=== PATIENT | female | born 1995 | race Caucasian/White ===

== ENCOUNTER 2020-01-23 10:30 | Emergency (ER) | payer SELFPAY ==
[2020-01-23 11:05] VITALS: BP 132/88; PULSE 97; RESP 18; TEMP 36.5; O2SAT 95; BMI 40.3
--- NOTE | 2020-01-23 11:10 | ED.EXTPRO ---
HPI - Extremity Problem General Chief complaint: Extremity Injury, Upper Stated complaint: R HAND PAIN Time Seen by Provider: 01/23/20 11:10 Source: patient Mode of arrival: ambulatory Limitations: no limitations History of Present Illness HPI Narrative: 24 y/o female presenting with intermittent tight wrist, hand and finger tingling for the last 3-4 days. No known injury. 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 She describes it as electrical shock type discomfort. She is right hand dominant. She denies being woken up at night from the pain and is able to do all of her ADL's. No hand weakness. Related Data Previous Rx's Medication Instructions Recorded prednisone 20 mg PO DAILY #10 tab 01/23/20 Allergies Allergy/AdvReac Type Severity Reaction Status Date / Time No Known Allergies Allergy Verified 01/23/20 11:07 [No Known Allergies*] Review of Systems Review of Systems: Constitutional: No Fever, No Chills Cardiovascular: No Chest Pain, No SOB, Respiratory: No Cough, No Sputum Gastrointestinal: No Nausea, No Vomiting, No Diarrhea, No abdominal Pain Musculoskeletal: + joint pain, No Myalgias Skin: No Skin Lesions, No rash Neuro: No Weakness, + Numbness/tingling Psych: + Anxiety/Panic, No Depression Heme/Lymph: No Bruising, No Lymphadenopathy PMFSH Past Medical History Attestation statement: The following information was validated with the patient. Medical History No known health problems Social History Social History Advance Directives: No Advance Directives Information Provided: No Physical Exam Vital Signs: Vital Signs: Last Vital Signs Temp 97.7 F 01/23/20 11:05 Pulse 97 01/23/20 11:05 Resp 18 01/23/20 11:05 BP 132/88 01/23/20 11:05 Pulse Ox 95 01/23/20 11:05 Body Mass Index 40.3 Appearance: Alert. Oriented X3. No acute distress. HEENT: normal inspection CVS: Normal heart rate and rhythm. Pulses normal. Respiratory: No respiratory distress. Skin: Skin warm and dry. Normal skin color. Normal skin turgor. No rashes. Extremities: normal appearing right forearm and wrist. no bony tenderness of wrist or arm. normal ROM and strength of wrist and fingers. positive Tinel test. positive Phalen test. Neuro: oriented. intermittent sensory deficit in the distribution of the median nerve. Course Course Course Narrative: 24 y/o female presenting with intermittent paresthesias of her right hand and fingers. Exam is consistent with carpal tunnel syndrome. No weakness on exam. Doubt cervical radiuclopathy, motor neuron disease, myopathy. Will place in splint for comfort and give trial of oral steroids. She will do her best to modify activity at work. Encouraged to f/u with Orthopedics for possible surgical decompression if symptoms persist or worsen. Stable for discharge. Critical Care Time Critical Care Time Critical Care Time: No Discharge Plan Discharge Clinical Impression: Acute carpal tunnel syndrome of right wrist Patient Disposition: Home, Self-Care Instructions: Paresthesia (ED), Carpal Tunnel Surgery (DC) Additional Instructions: Your history and exam today are consistent with early, mild carpal tunnel syndrome. Some people feel better if they wear splints at night that keep their hands in a neutral position. The neutral position is when the wrist is not bent forward or backward and the fingers are curled naturally toward the palm. Recommend course of oral steroids to help with inflammation - sent to your pharmacy. Recommend follow up with an Orthopedic doctor for possible surgical treatment if symptoms persist or worsen. Prescriptions: New prednisone 20 mg tablet 20 mg PO DAILY Qty: 10 RF: 0 Referrals: Zhao Garcia MD [Physician] - 2 weeks Stand Alone Forms: Work/School Release
== END 2020-01-23 11:32 | disposition home or self-care (01) ==
PROVIDERS: Emergency Provider Emergency Medicine
DX: G56.01 Carpal tunnel syndrome, right upper limb (principal); M79.641 Pain in right hand; Z79.899 Other long term (current) drug therapy
CPT/HCPCS: 99283

== ENCOUNTER 2020-03-01 09:15 | Outpatient (REF) | payer OTHER, SELFPAY ==
--- NOTE | 2020-03-01 09:30 | EMG_ITS ---
This is a 24-year-old woman with a 3-month history of bilateral, right greater than left upper extremity pain and numbness. It hurts more upon using it. PHYSICAL EXAMINATION: She is alert and oriented with normal intellectual functions. Cranial nerves II through XII are normal. Muscle tone and strength are normal in all 4 extremities. Deep tendon reflexes symmetrical, 2+, plantar response are flexor. No Tinel or Phalen sign. IMPRESSION: Rule out carpal tunnel syndrome. Nerve conduction EMG study: Normal electrodiagnostic study of both upper extremities with no evidence of carpal tunnel syndrome or nerve entrapment. Normal EMG of the C5-T1 innervated muscles bilaterally. MD VAZQUEZ Irwin/RAJ / [id number]
== END 2020-03-01 09:16 | disposition home or self-care (01) ==
LOC: HO.NEURO 09:15
PROVIDERS: PCP Internal Medicine; Visit Provider Hospitalist
DX: R20.2 Paresthesia of skin (principal)
CPT/HCPCS: 95886; 95913

== ENCOUNTER → 2020-03-22 08:26 | Outpatient (BNVA) | payer OTHER, SELFPAY | PROVIDERS: PCP Internal Medicine; Visit Provider Orthopaedic Surgery | DX: R20.2 Paresthesia of skin (principal) | CPT/HCPCS: 99202 ==

== ENCOUNTER 2020-12-15 16:39 | Outpatient (REF) | payer OTHER, SELFPAY | END 2020-12-15 16:40 | disposition home or self-care (01) | LOC: HO.LNP 16:39 | PROVIDERS: Visit Provider Physician Assistant | DX: J06.9 Acute upper respiratory infection, unspecified (principal); Z20.822 Contact with and (suspected) exposure to COVID-19 | CPT/HCPCS: U0003; U0005 ==

== ENCOUNTER 2023-10-20 18:33 | Emergency (ER) | payer OTHER, SELFPAY ==
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
[2023-10-20 18:36] VITALS: BP 170/81; PULSE 120; RESP 20; TEMP 36.7; O2SAT 99; BMI 41.2
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
[2023-10-20 19:37] VITALS: BP 152/104; PULSE 102; RESP 16; TEMP 36.8; O2SAT 99
[2023-10-20 20:19] VITALS: BP 152/104; PULSE 102; RESP 16; TEMP 36.8; O2SAT 99
== END 2023-10-20 20:20 | disposition home or self-care (01) ==
PROVIDERS: Emergency Provider Emergency Medicine
DX: S80.02XA Contusion of left knee, initial encounter (principal); S09.90XA Unspecified injury of head, initial encounter; M25.562 Pain in left knee; R51.9 Headache, unspecified; V43.52XA Car driver injured in collision with other type car in traffic accident, initial encounter; Y93.9 Activity, unspecified; Y92.488 Other paved roadways as the place of occurrence of the external cause; Y99.8 Other external cause status; Z79.899 Other long term (current) drug therapy
CPT/HCPCS: 70450; 72125; 73562; 99284

== ENCOUNTER 2023-10-23 08:14 | Outpatient (AMB) | payer OTHER, SELFPAY ==
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
[2023-10-23 08:28] VITALS: BP 124/80; PULSE 107; TEMP 36.9; O2SAT 98; BMI 41.3
== END 2023-10-23 09:42 | disposition home or self-care (01) ==
PROVIDERS: Visit Provider Nurse Practitioner Family
DX: S20.212A Contusion of left front wall of thorax, initial encounter (principal); S80.02XA Contusion of left knee, initial encounter; R51.9 Headache, unspecified; M54.50 Low back pain, unspecified
CPT/HCPCS: 99214

== ENCOUNTER 2023-10-23 09:08 | Outpatient (REF) | payer OTHER, SELFPAY ==
--- NOTE | ~2023-10-23 | XR_ITS ---
EXAMINATION: XR RIBS, LEFT CLINICAL INFORMATION: Contusion left frontal wall COMPARISON: Chest radiograph from 06/22/2019 TECHNIQUE: 4 views of the left ribs were obtained. FINDINGS: No focal consolidation. No pneumothorax. Trachea is midline. Cardiac mediastinal silhouette is not enlarged. No large pleural effusion. Osseous structures are intact. No acute visualized left-sided rib fractures. XR/XR ribs LT min 3V w CXR1V IMPRESSION: 1. No acute cardiopulmonary process. 2. No acute visualized left-sided rib fractures.
== END 2023-10-23 09:09 | disposition home or self-care (01) ==
LOC: HO.HMGCX 09:08
PROVIDERS: Visit Provider Nurse Practitioner Family
DX: S20.212A Contusion of left front wall of thorax, initial encounter (principal)
CPT/HCPCS: 71101

== ENCOUNTER 2023-12-16 09:32 | Outpatient (AMB) | payer OTHER, SELFPAY ==
--- NOTE | 2023-12-16 09:32 | AM.OFFWIN_ITS ---
Intake Vital Signs 3 12/16/23 09:40 Height 5 ft 6 in Weight 250 lb BMI 40.3 BP 120/80 Blood Pressure Location Rt brachial Position Sitting Pulse 100 Pulse Source Pulse Oximeter Pulse Oximetry (%) 98 Oxygen Delivery Method Room Air Intake Visit Reasons: EP-STI testing Intake Note: Patient here for STI testing. she states she has a new partner and wants to make sure she is clear. she also has complaints of diarrhea as well. Patient Tobacco Use Status: Never used Tobacco Allergies lorazepam Allergy (Verified 10/23/23 08:27) Unknown prednisone Adverse Reaction (Verified 10/23/23 08:27) migraines Medication List - Last Reconciled 12/16/23 by Prashant Andersen MD acetaminophen 1,000 mg (2 x 500 mg) PO Q6H PRN cyclobenzaprine 10 mg PO BEDTIME PRN levonorgestrel (Mirena) intrauterine meloxicam 15 mg PO DAILY semaglutide (weight loss) 0.5 mg subcut QWEEK Do you need a note to return to daycare/school/sports/work: No HPI EP-STI testing 2 HPI0 Details Patient is 28-year-old female came in today to be evaluated for different medical issues Patient says that for the past 1 week she is having frequent bowel movement which is liquid in consistency There was no nausea vomiting fever or abdominal pain associated with it Her bowel movements have lessened in frequency but consistency is still not normal There is no blood in the stools She has an IUD in which need to be evaluated Patient has started having spotting which is concerning to her She also have a new sexual partner She would like to be tested for STDs Her primary care appointment isn't until May of next year I will see if we can have her seen earlier than that I am ordering labs for the patient Vaginal cultures taken We will also test urine for gonorrhea and chlamydia Since diarrhea is improving at this point observation only On examination her abdomen is benign with slight discomfort left lower quadrant without any guarding or rebound PFSH Medical History Depression Refused influenza vaccine Morbid obesity Generalized anxiety disorder Heartburn H/O No known health problems Family History Mother Hypertension Anemia H/O kidney disease H/O major depression H/O anxiety disorder Paternal Grandmother H/O malignant neoplasm of breast Sister H/O: depression Social History Alcohol intake: current Alcohol intake frequency: a few times a month Patient Tobacco Use Status: Never used Tobacco Substance Use Type: Marijuana Current occupational status: employed 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 Minimal discomfort with deep pressure, no guarding no rebound, bowel sounds positive Neuro General: patient oriented x3 Psych Mental Status: mental status grossly normal Assessment & Plan Assessment & Plan (1) Change in bowel movement: Code(s): R19.8 - Other specified symptoms and signs involving the digestive system and abdomen (2) Diarrhea: Code(s): R19.7 - Diarrhea, unspecified Qualifiers: Diarrhea type: unspecified type Qualified Code(s): R19.7 - Diarrhea, unspecified (3) Vaginal spotting: Code(s): N93.9 - Abnormal uterine and vaginal bleeding, unspecified Plan Patient is 28-year-old female came in today to be evaluated for different medical issues Patient says that for the past 1 week she is having frequent bowel movement which is liquid in consistency There was no nausea vomiting fever or abdominal pain associated with it Her bowel movements have lessened in frequency but consistency is still not normal There is no blood in the stools She has an IUD in which need to be evaluated Patient has started having spotting which is concerning to her She also have a new sexual partner She would like to be tested for STDs Her primary care appointment isn't until May of next year I will see if we can have her seen earlier than that I am ordering labs for the patient Vaginal cultures taken We will also test urine for gonorrhea and chlamydia Since diarrhea is improving at this point observation only On examination her abdomen is benign with slight discomfort left lower quadrant without any guarding or rebound Orders: Orders 2 CT NG by PCR Today N93.9 - Abnormal uterine and vaginal bleeding, unspecified Complete Blood Count Auto Diff Today N93.9 - Abnormal uterine and vaginal bleeding, unspecified, R19.7 - Diarrhea, unspecified, R19.8 - Other specified symptoms and signs involving the digestive system and abdomen Comprehensive Met. Panel Today N93.9 - Abnormal uterine and vaginal bleeding, unspecified, R19.7 - Diarrhea, unspecified, R19.8 - Other specified symptoms and signs involving the digestive system and abdomen TSH reflex Free T4 Today N93.9 - Abnormal uterine and vaginal bleeding, unspecified, R19.7 - Diarrhea, unspecified, R19.8 - Other specified symptoms and signs involving the digestive system and abdomen Bacterial Vaginosis Panel Today N93.9 - Abnormal uterine and vaginal bleeding, unspecified Coding Level of Care Code Est Pt Level 4 (10247) Diagnoses Change in bowel movement R19.8 Diarrhea, unspecified type R19.7 Diarrhea type: unspecified type Vaginal spotting N93.9
[2023-12-16 09:40] VITALS: BP 120/80; PULSE 100; O2SAT 98; BMI 40.3
== END 2023-12-16 10:16 | disposition home or self-care (01) ==
PROVIDERS: Visit Provider Internal Medicine
DX: R19.8 Other specified symptoms and signs involving the digestive system and abdomen (principal); R19.7 Diarrhea, unspecified; N93.9 Abnormal uterine and vaginal bleeding, unspecified

== ENCOUNTER 2023-12-16 09:32 | Outpatient (REF) | payer OTHER, SELFPAY ==
[2023-12-16 15:19] LABS: Bacterial Vaginosis PCR POSITIVE (Negative); Candida Group PCR NOT DETECTED (Not Detect); Candida glab krusei PCR NOT DETECTED (Not Detect); Trichomonas vaginalis PCR NOT DETECTED (Not Detect)
[2023-12-16 15:49] LABS: CT PCR NOT DETECTED (Not Detect.); NG PCR NOT DETECTED (Not Detect.)
== END 2023-12-16 09:33 | disposition home or self-care (01) ==
LOC: HO.LAB 09:32
PROVIDERS: Visit Provider Internal Medicine
DX: N93.9 Abnormal uterine and vaginal bleeding, unspecified (principal); R19.7 Diarrhea, unspecified; Z20.2 Contact with and (suspected) exposure to infections with a predominantly sexual mode of transmission; Z97.5 Presence of (intrauterine) contraceptive device
CPT/HCPCS: 0352U; 87491; 87591; 99212

== ENCOUNTER 2023-12-16 10:08 | Outpatient (REF) | payer OTHER, SELFPAY ==
[2023-12-16 13:08] LABS: MANUAL DIFF FLAG NO
[2023-12-16 13:27] LABS: Basophils Absolute Auto 0.1 X10*3/uL (0.0-0.2); Basophils Percent Auto 0.7 % (0-2); Eosinophils Absolute Auto 0.2 X10*3/uL (0.0-0.4); Eosinophils Percent Auto 3.2 % (0-4); Hematocrit 46.8 % (37.0-47.0); Hemoglobin 15.9 g/dl (12.0-16.0); Imm Gran Abs Auto 0.02 X10*3/uL (0.00-0.03); Imm Gran Pct Auto 0.3 % (0.0-0.4); Lymphocytes Absolute Auto 1.9 X10*3/uL (1.2-4.9); Lymphocytes Percent Auto 25.9 % (20-40); Mean Corpuscular Hemoglobin 29.8 pg (27.0-33.0); Mean Corpuscular Volume 87.6 fL (80.0-98.0); Mean Platelet Volume 9.6 fL (9.4-12.3); Monocytes Absolute Auto 0.8 X10*3/uL (0.1-1.2); Monocytes Percent Auto 10.4 % (2-11); Neutrophils Absolute Auto 4.5 x10*3/uL (2.0-8.3); Neutrophils Percent Auto 59.5 % (45-73); Platelet Count 307 X10*3/uL (160-400); Red Blood Count 5.34 X10*6/uL (4.20-5.50); Red Cell Distribution Width 11.9 % (11.0-16.0); White Blood Count 7.5 X10*3/uL (4.8-10.8)
[2023-12-16 14:06] LABS: Alanine Aminotransferase 29 U/L (0-31); Albumin Level 4.3 g/dL (3.5-5.0); Alkaline Phosphatase 76 U/L (39-117); Anion Gap 12 (12-20); Aspartate Amino Transferase 17 U/L (5-31); Bilirubin Total 0.5 mg/dL (0.0-1.0); Blood Urea Nitrogen 9 mg/dL (9-16); Calcium 9.6 mg/dL (8.4-10.2); Carbon Dioxide 27 mmol/L (22-29); Chloride 106 mmol/L (96-108); Estimated Glomerular Filt Rate > 60; Glucose Random 89 mg/dL (60-115); Potassium 3.7 mmol/L (3.3-5.1); Sodium 141 mmol/L (135-145); TSH reflex Free T4 1.03 uIU/mL (0.32-4.0); Total Protein 7.4 g/dL (6.5-8.0)
== END 2023-12-16 10:09 | disposition home or self-care (01) ==
LOC: HO.HMGCLDS 10:08
PROVIDERS: PCP Internal Medicine; Visit Provider Internal Medicine
DX: R19.8 Other specified symptoms and signs involving the digestive system and abdomen (principal); R19.7 Diarrhea, unspecified; N93.9 Abnormal uterine and vaginal bleeding, unspecified
CPT/HCPCS: 36415; 80053; 84443; 85025

== ENCOUNTER 2023-12-31 11:19 | Outpatient (AMB) | payer OTHER, SELFPAY ==
[2023-12-31 11:25] VITALS: BP 120/78; PULSE 89; O2SAT 97; BMI 39.9
--- NOTE | 2023-12-31 11:25 | A.OFFPC_ITS ---
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 Allergies lorazepam Allergy (Verified 12/31/23 11:26) Unknown prednisone Adverse Reaction (Verified 12/31/23 11:26) migraines Medication List - Last Reconciled 12/31/23 by Prashant Andersen MD levonorgestrel (Mirena) intrauterine semaglutide (weight loss) 0.5 mg subcut QWEEK Tobacco use date assessed: 12/31/23 Dental Screening Dental Screen Date: 12/31/23 Did you have a dental visit in the last 12 months?: Yes Did you have a dental problem in the last 6 months where you did not have access to dental care?: No Was dental information given to patient?: Patient has dentist HPI Civil Preparedness Officer Est Care HPI Details Patient is 28-year-old female came in for establish care visit Complaining of feeling wheezy and sometimes also have coughing fits She does admit to having a reflux but is not being treated Patient is on semaglutide through a different clinic by provider called Jenny Avalos She started the injections summer of this year, and was able to lose about 19 lb She is going to that clinic every 2 months for re-evaluation. She is in need of OBGYN, referral placed Her anxiety score is high Patient does admit to feeling anxiety all the time She tells me that she was started on lorazepam which she does not like I am starting her on Lexapro 10 mg patient is to take half a tablet for a week and then full tablet Labs done recently reviewed with the patient She will return in 2 months for follow-up appointment [facility] Medical History Depression Refused influenza vaccine Morbid obesity Generalized anxiety disorder Heartburn H/O No known health problems Family History Mother Hypertension Anemia H/O kidney disease H/O major depression H/O anxiety disorder Paternal Grandmother H/O malignant neoplasm of breast Sister H/O: depression Social History Housing: House Alcohol intake: current Alcohol intake frequency: a few times a month Patient Tobacco Use Status: Never used Tobacco e-Cigarette/Vaping Use: Never Used Substance Use Type: Marijuana service: No Current occupational status: employed 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 1. Little interest or pleasure in doing things: not at all 2. Feeling down, depressed, or hopeless: not at all 3. Trouble falling or staying asleep, or sleeping too much: not at all 4. Feeling tired or having little energy: not at all 5. Poor appetite or overeating: not at all 6. Feeling bad about yourself - or that you are a failure or have let yourself or your family down: not at all 7. Trouble concentrating on things, such as reading the newspaper or watching television: not at all 8. Moving or speaking so slowly that other people could have noticed. Or the opposite - being so fidgety or restless that you have been moving around a lot more than usual: not at all 9. Thoughts that you would be better off or of hurting yourself in some way: not at all Total score: 0 Depression Screening Interpretation: Negative Depression Screening Done: Yes 71630 - PHQ-9 Billing: Yes Source: Developed by Drs. Duran Mcmahon, Vianey Osborne, Hector Ro and colleagues, with an educational socorro from [employer]. Thrive Questionnaire Date Thrive assessed: 12/31/23 I am a: Patient What is your living situation today?: I have a steady place to live Within the past 12 months, did the food you bought not last and you didn't have the money to get more?: Never true Within the past 12 months, did you worry whether your food would run out before you got money to buy more?: Never true Do you have trouble paying for medicines?: No Do you have trouble getting transportation to medical appointments?: No Do you have trouble paying your heating and electricity bill?: No Do you have trouble taking care of your child, family member or friend?: No Do you have trouble with day-to-day activities such as bathing, preparing meals, shopping, managing finances, etc.?: No Are you currently unemployed and looking for a job?: No Are you interested in more education?: No Please select the resources that you would like help with: None Currently or been in a relationship where the following occur: No concerns reported THRIVE Score: 0 AUDIT C Alcohol Use Questionnaire (AUDIT-C) 1. How often do you have a drink containing alcohol?: Never 3. How often do you have six or more drinks on one occasion?: Never Total Score: 0 Score Reviewed/Action Taken: Yes MARY-7 AMB Questionnaire MARY-7 Date MARY - 7 assessed: 12/31/23 Feeling nervous, anxious, or on edge: 0 = Not at all Not being able to stop or control worryin = Not at all Worrying too much about different things: 0 = Not at all Trouble relaxin = Not at all Being so restless that it is hard to sit still: 0 = Not at all Becoming easily annoyed or irritable: 0 = Not at all Feeling afraid as if something awful might happen: 0 = Not at all Total MARY-7 score (0-4 normal; 5-9 mild; 10-14 moderate; 15-21 severe): 0 Source: Developed by Drs. Duran Mcmahon, Vianey Osborne, Hector Ro and colleagues, with an educational socorro from [employer]. MARY-7 Assessment Billing MARY-7 Assessment Tool: MARY-7 Assessment 02612 Review of Systems Const Denies chills, Denies fever(s) and Denies headache(s) Eyes Denies blurry vision ENT Denies headache(s), Denies nasal discharge, Denies nasal obstruction, Denies odynophagia and Denies sinus pain Card Denies chest pain at rest and Denies chest pain with activity Resp Denies cough and Denies hemoptysis GI Denies diarrhea, Denies odynophagia, Denies vomiting and Denies hematemesis Reports as per HPI Musc Denies abnormal gait Skin/Breast Reports as per HPI Neuro Denies Neuro-related abnormal movements, Denies Abnormal speech present, Denies abnormal gait, Denies headache(s) and Denies Sensory deficit (Neuro) Psych Denies mood swings and Denies paranoia Endo Reports as per HPI Taj/Lymph Reports as per HPI Aller/Immun Reports as per HPI Physical exam (Primary Care) Vital Signs: Last Vital Signs Pulse 89 12/31/23 11:25 BP 120/78 12/31/23 11:25 Pulse Ox 97 12/31/23 11:25 Oxygen Delivery Method Room Air 12/31/23 11:25 BMI result Body Mass Index 39.9 Tobacco/Smoking Status: Tobacco use Status Tobacco use date assessed 12/31/23 12/31/23 11:30 Patient Tobacco Use Status Never used Tobacco 12/31/23 11:30 e-Cigarette/Vaping Use Never Used 12/31/23 11:30 PHQ-9: PHQ-9 Score PHQ-9: Total score 0 12/31/23 11:45 Depression Screening Interpretation: Negative Thrive Assessment: Date of Thrive Assessment Date Thrive assessed 12/31/23 12/31/23 11:30 Currently or been in a relationship where the following occur: No concerns reported Const General: cooperative, comfortable and no acute distress Orientation/consciousness: patient oriented x3 HENMT Head: Yes normocephalic and Yes atraumatic Eyes General: appearance normal, both eyes and all related structures Pupils: Equal, round and reactive pupils present EOM: EOMs intact bilaterally Neck Neck: Yes supple and No lymphadenopathy Thyroid: Thyroid normal Lymphatic: no lymphadenopathy noted Chest Breast/axilla palpation: normal palpation of the breasts Resp Effort & Inspection: normal respiratory effort and able to speak in complete sentences Auscultation: clear to auscultation bilaterally Cardio Heart sounds: S1 normal heart sound present and S2 normal heart sound present GI Palpation (GI): Soft to palpation and nontender Auscultation: normal bowel sounds General: Yes no CVA tenderness Back/Spine/Pelvis Back: no CVA tenderness Skin General skin exam: elasticity normal and turgor normal Neuro General: patient oriented x3 and gait normal Cranial nerves: Yes Equal, round and reactive pupils present Speech: No Abnormal speech present Sensory Exam: No Sensory deficit (Neuro) Coordination: tandem gait normal and Romberg test negative Extrem General: No edema Coding Level of Care Code New Pt Level 4 (31929) Diagnoses Establishing care with new doctor, encounter for Z76.89 Class 2 obesity due to excess calories without serious comorbidity with body mass index (BMI) of 39.0 to 39.9 in adult E66.812; E66.09; Z68.39 Body mass index: BMI 39.0-39.9 Obesity classification: adult class 2 (BMI 35 - 39.9) Serious obesity comorbidity presence: without serious comorbidity Chronic GERD K21.9 Wheezing R06.2 Generalized anxiety disorder F41.1 Additional Codes MARY-7 Assessment Billing - MARY-7 Assessment Tool: MARY-7 Assessment 37943 ([id number]) Assessment & Plan Assessment & Plan (1) Establishing care with new doctor, encounter for: Code(s): Z76.89 - Persons encountering health services in other specified circumstances Category: Medical (2) Obesity due to excess calories: Code(s): E66.09 - Other obesity due to excess calories Category: Medical Qualifiers: Body mass index: BMI 39.0-39.9 Obesity classification: adult class 2 (BMI 35 - 39.9) Serious obesity comorbidity presence: without serious comorbidity Qualified Code(s): E66.812 - Obesity, class 2; E66.09 - Other obesity due to excess calories; Z68.39 - Body mass index [BMI] 39.0-39.9, adult (3) Chronic GERD: Code(s): K21.9 - Gastro-esophageal reflux disease without esophagitis Category: Medical (4) Wheezing: Code(s): R06.2 - Wheezing Category: Medical (5) Generalized anxiety disorder: Code(s): F41.1 - Generalized anxiety disorder Category: Medical Plan Patient is 28-year-old female came in for establish care visit Complaining of feeling wheezy and sometimes also have coughing fits She does admit to having a reflux but is not being treated Patient is on semaglutide through a different clinic by provider called Jenny Avalos She started the injections summer of this year, and was able to lose about 19 lb She is going to that clinic every 2 months for re-evaluation. 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
== END 2023-12-31 11:47 | disposition home or self-care (01) ==
PROVIDERS: Visit Provider Internal Medicine
DX: Z76.89 Persons encountering health services in other specified circumstances (principal); E66.812 Obesity, class 2; E66.09 Other obesity due to excess calories; Z68.39 Body mass index [BMI] 39.0-39.9, adult; K21.9 Gastro-esophageal reflux disease without esophagitis; R06.2 Wheezing; F41.1 Generalized anxiety disorder

== ENCOUNTER → 2023-12-31 11:19 | Outpatient (BNVA) | payer OTHER, SELFPAY | PROVIDERS: Visit Provider Internal Medicine | DX: Z76.89 Persons encountering health services in other specified circumstances (principal); E66.812 Obesity, class 2; E66.09 Other obesity due to excess calories; Z68.39 Body mass index [BMI] 39.0-39.9, adult; K21.9 Gastro-esophageal reflux disease without esophagitis; R06.2 Wheezing; F41.1 Generalized anxiety disorder; S89.92XA Unspecified injury of left lower leg, initial encounter; V89.2XXA Person injured in unspecified motor-vehicle accident, traffic, initial encounter; Y93.9 Activity, unspecified; Y92.9 Unspecified place or not applicable; Y99.9 Unspecified external cause status | CPT/HCPCS: 96127; 99202 ==

== ENCOUNTER 2023-12-31 11:37 | Outpatient (AMB) | payer OTHER, SELFPAY ==
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
== END 2023-12-31 12:20 | disposition home or self-care (01) ==
LOC: HO.HMCC 11:37
PROVIDERS: Visit Provider Internal Medicine
DX: S89.92XA Unspecified injury of left lower leg, initial encounter (principal); V89.2XXA Person injured in unspecified motor-vehicle accident, traffic, initial encounter; M25.562 Pain in left knee

== ENCOUNTER 2024-01-09 13:23 | Outpatient (REF) | payer OTHER, SELFPAY ==
--- NOTE | ~2024-01-09 | XR_ITS ---
EXAMINATION: XR CHEST CLINICAL INFORMATION: Shortness of breath. COMPARISON: Most recent rib radiographs dated 10/23/2023. TECHNIQUE: 2 views of the chest were obtained. FINDINGS: The lungs are clear. The cardiomediastinal silhouette is normal in size. There is no pleural effusion or pneumothorax. No acute osseous abnormality. XR/XR chest 2V IMPRESSION: No acute cardiopulmonary findings. Electronically signed by: Terence Gonzalez MD 01/09/2024 04:10 PM EDT
== END 2024-01-09 13:24 | disposition home or self-care (01) ==
LOC: HO.HMGCX 13:23
PROVIDERS: Visit Provider Physician Assistant Medical
DX: R06.02 Shortness of breath (principal); I49.9 Cardiac arrhythmia, unspecified; Z79.899 Other long term (current) drug therapy
CPT/HCPCS: 71046; 93005; 99212

== ENCOUNTER 2024-01-09 13:23 | Outpatient (AMB) | payer OTHER, SELFPAY ==
[2024-01-09 13:35] VITALS: BP 122/80; PULSE 123; O2SAT 97; BMI 39.9
--- NOTE | 2024-01-09 13:35 | MHC.OFFWIV ---
Intake Vital Signs 01/09/24 13:35 Height 5 ft 6 in Weight 247 lb BMI 39.9 BP 122/80 Blood Pressure Location Lt brachial Position Sitting Pulse 123 H Pulse Source Pulse Oximeter Pulse Oximetry (%) 97 Oxygen Delivery Method Room Air Intake Visit Reasons: EP SOB, inhaler not working for her Intake Note: Patient here for fluid feeling in chest which started this morning, unable to take a full breathe. Patient Tobacco Use Status: Never used Tobacco Allergies lorazepam Allergy (Verified 01/09/24 13:37) Unknown prednisone Adverse Reaction (Verified 01/09/24 13:37) migraines Do you need a note to return to daycare/school/sports/work: No HPI HPI Comments History of Present Illness Details This is a 28-year-old female who presented to the walk-in clinic complaining of difficulty breathing that began this morning. Patient states she was sick with a sinus infection last week with nasal/sinus congestion/rhinorrhea. She had associated fever/chills and fatigue/malaise. These symptoms have since resolved. She then noticed difficulty breathing when she woke up this morning. She states she feels as though she can not take a deep breath or she will have a coughing fit. She states she has been coughing up a lot of mucus/bile. She states she feels as though there is ?fluid in her lungs? preventing her from taking a full breath. She states the symptoms worsened when she lies down. Patient reports significant anxiety and her primary care physician sent a prescription for escitalopram last week although patient has not picked up this medication. She denies any recent travel or recent surgeries. She denies any lower extremity edema. Patient followed up with her primary care physician on 12/31/2023 and had complained of coughing fits and wheezing. Her primary care physician thought this could be related to her acid reflux and sent her a prescription for pantoprazole although patient has not picked up this medication. [facility] Medical History Depression Refused influenza vaccine Morbid obesity Generalized anxiety disorder Heartburn H/O No known health problems Family History Mother Hypertension Anemia H/O kidney disease H/O major depression H/O anxiety disorder Paternal Grandmother H/O malignant neoplasm of breast Sister H/O: depression Social History Housing: House Alcohol intake: current Alcohol intake frequency: a few times a month Patient Tobacco Use Status: Never used Tobacco e-Cigarette/Vaping Use: Never Used Substance Use Type: Marijuana service: No Current occupational status: employed 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, 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 Cognitive needs: No Hearing needs: No Vision needs: Yes Review of Systems Const All systems reviewed & are unremarkable except as noted in HPI and below Reports no additional complaints Eyes Reports no additional complaints ENT Reports no additional complaints Card Reports no additional complaints Resp Reports no additional complaints GI Reports no additional complaints Reports no additional complaints Musc Reports no additional complaints Skin/Breast Reports system reviewed and no additional complaints, except as documented Neuro Reports no additional complaints Psych Reports no additional complaints Endo Reports no additional complaints Taj/Lymph Reports no additional complaints Aller/Immun Reports no additional complaints Physical Exam Vital Signs: Last Vital Signs Pulse 123 H 01/09/24 13:35 BP 122/80 01/09/24 13:35 Pulse Ox 97 01/09/24 13:35 Oxygen Delivery Method Room Air 01/09/24 13:35 BMI result Body Mass Index 39.9 Const Other: Vital signs reviewed. Constitutional: Non-toxic appearing. No acute distress. Well-developed and well-nourished. HEENT: Normocephalic and atraumatic. Skin: Warm and dry. No rashes or lesions noted. Neck: Full and painless range of motion. No cervical lymphadenopathy. Cardio: Tachycardic but regular rhythm. No murmurs, gallops, or rubs. No lower extremity edema. No JVD. Pulmonary: No respiratory distress. No accessory muscle usage. Clear to auscultation bilaterally without wheezing, crackles, or rhonchi. Patient is taking shallow breaths. Gastrointestinal: Soft, nontender, and nondistended in all 4 quadrants. Musculoskeletal: Normal range of motion in joints throughout the body. No deformity or other signs of injury. Neuro: Alert and oriented x4. Cranial nerves 2-12 grossly intact. No focal deficits appreciated. Psych: Normal mood and affect. Office Procedures EKG Details: Sinus tachycardia at 111 beats per minute, no acute ischemic changes [id number], Complete Assessment & Plan Assessment & Plan (1) Shortness of breath: Code(s): R06.02 - Shortness of breath Plan This is a 28-year-old female who presented to the walk-in clinic complaining of difficulty breathing with productive cough, which worsens with lying down. On physical examination, her lungs are clear to auscultation bilaterally but she is taking short shallow breaths. Patient is tachycardic although reports significant anxiety and has been utilizing a beta agonist inhaler, which can also increase her heart rates. An EKG was obtained, which showed sinus tachycardia without acute ischemic changes. A chest x-ray was obtained, which was negative for acute cardiopulmonary process but did show some stomach gas. I did discuss with the patient that her x-ray was negative for pulmonary congestion or pneumonia. I did raise concern that she could have a pulmonary embolism given her elevated heart rates and difficulty breathing; however, I do have lower suspicion for this given no lower extremity edema, recent travel/surgeries, or estrogen treatment. She states that her mother had a pulmonary embolism in the setting of COVID-19 at the age of 5050 years old. I did explain to the patient that a pulmonary embolism can not be ruled out here and I did encourage her to go to the emergency room; however, she declined. I explained to the patient that her symptoms could be related to her acid reflux versus her anxiety and I encouraged her to leaf size picker her pantoprazole as well as her escitalopram as previously prescribed by her primary care physician. I encouraged the patient to proceed directly to the emergency room if she were to develop any lower extremity edema, worsening shortness of breath, pleuritic chest pain, or persistent tachycardia. Patient verbalized understanding and is agreeable with the plan and she was appreciative of the help. Orders: Orders XR chest 2V Today R06.02 - Shortness of breath AMB EKG-In Office Today I49.9 - Cardiac arrhythmia, unspecified Medications: Refilled escitalopram oxalate (Lexapro) Take half a tablet for 1 week and then full tablet 10 mg PO DAILY 90 tabs 0RF pantoprazole Take it on empty stomach at night 40 mg PO DAILY 90 tabs 0RF Coding Level of Care Code Est Pt Level 3 (26941) Diagnoses Shortness of breath R06.02 CPT Codes EKG - CPT: 01970-[id number], Complete ([id number])
== END 2024-01-09 15:17 | disposition home or self-care (01) ==
PROVIDERS: Visit Provider Physician Assistant Medical
DX: R06.02 Shortness of breath (principal)

== ENCOUNTER 2024-02-10 09:56 | Outpatient (AMB) | payer OTHER, SELFPAY ==
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
[2024-02-10 10:11] VITALS: BMI 39.9
== END 2024-02-10 10:30 | disposition home or self-care (01) ==
PROVIDERS: Visit Provider Orthopaedic Surgery
DX: M25.562 Pain in left knee (principal); S83.242A Other tear of medial meniscus, current injury, left knee, initial encounter
CPT/HCPCS: 99203; G2211

== ENCOUNTER → 2024-02-10 09:56 | Outpatient (BNVA) | payer OTHER, SELFPAY | PROVIDERS: Visit Provider Orthopaedic Surgery ==

== ENCOUNTER 2024-02-17 18:11 | Outpatient (REF) | payer OTHER, SELFPAY | END 2024-02-17 18:12 | disposition home or self-care (01) | LOC: HO.MRI 18:11 | PROVIDERS: PCP Internal Medicine; Visit Provider Orthopaedic Surgery | DX: S83.242A Other tear of medial meniscus, current injury, left knee, initial encounter (principal) | CPT/HCPCS: 73721 ==

== ENCOUNTER 2024-02-27 09:32 | Outpatient (REF) | payer OTHER, SELFPAY | END 2024-02-27 09:33 | disposition home or self-care (01) | LOC: HO.LNP 09:32 | PROVIDERS: Visit Provider Advanced Practice Midwife | DX: Z01.419 Encounter for gynecological examination (general) (routine) without abnormal findings (principal); N93.9 Abnormal uterine and vaginal bleeding, unspecified; E66.01 Morbid (severe) obesity due to excess calories; F41.1 Generalized anxiety disorder; Z82.49 Family history of ischemic heart disease and other diseases of the circulatory system; Z68.39 Body mass index [BMI] 39.0-39.9, adult; E66.812 Obesity, class 2 | CPT/HCPCS: 88175; 99385; 99459 ==

== ENCOUNTER 2024-02-27 09:32 | Outpatient (AMB) | payer OTHER, SELFPAY ==
[2024-02-27 09:37] VITALS: BP 118/72; BMI 38.2
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
== END 2024-02-27 10:24 | disposition home or self-care (01) ==
PROVIDERS: Visit Provider Advanced Practice Midwife
DX: Z01.419 Encounter for gynecological examination (general) (routine) without abnormal findings (principal); N93.9 Abnormal uterine and vaginal bleeding, unspecified; E66.812 Obesity, class 2; Z68.39 Body mass index [BMI] 39.0-39.9, adult; F41.1 Generalized anxiety disorder; Z12.4 Encounter for screening for malignant neoplasm of cervix
CPT/HCPCS: 99385

== ENCOUNTER 2024-02-27 10:20 | Outpatient (REF) | payer OTHER, SELFPAY ==
[2024-02-28 07:15] LABS: CT PCR NOT DETECTED (Not Detect.); NG PCR NOT DETECTED (Not Detect.)
[2024-02-28 13:29] LABS: Bacterial Vaginosis PCR POSITIVE (Negative); Candida Group PCR NOT DETECTED (Not Detect); Candida glab krusei PCR NOT DETECTED (Not Detect); Trichomonas vaginalis PCR NOT DETECTED (Not Detect)
== END 2024-02-27 10:21 | disposition home or self-care (01) ==
LOC: HO.LAB 10:20
PROVIDERS: Visit Provider Advanced Practice Midwife
DX: Z01.419 Encounter for gynecological examination (general) (routine) without abnormal findings (principal); N89.8 Other specified noninflammatory disorders of vagina
CPT/HCPCS: 0352U; 87491; 87591

== ENCOUNTER 2024-03-09 12:07 | Outpatient (REF) | payer OTHER, SELFPAY ==
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
== END 2024-03-09 12:08 | disposition home or self-care (01) ==
LOC: HO.HMGCX 12:07
PROVIDERS: PCP Internal Medicine; Visit Provider Internal Medicine
DX: M54.32 Sciatica, left side (principal); M53.3 Sacrococcygeal disorders, not elsewhere classified; M25.562 Pain in left knee; F41.1 Generalized anxiety disorder; R12 Heartburn; K21.9 Gastro-esophageal reflux disease without esophagitis; E66.812 Obesity, class 2; E66.09 Other obesity due to excess calories; Z68.39 Body mass index [BMI] 39.0-39.9, adult
CPT/HCPCS: 72100; 72220; 99212

== ENCOUNTER 2024-03-09 12:07 | Outpatient (AMB) | payer OTHER, SELFPAY ==
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
[2024-03-09 12:08] VITALS: BP 120/76; PULSE 96; O2SAT 98; BMI 38.3
== END 2024-03-09 12:34 | disposition home or self-care (01) ==
PROVIDERS: Visit Provider Internal Medicine
DX: R12 Heartburn (principal); F41.1 Generalized anxiety disorder; E66.812 Obesity, class 2; Z68.39 Body mass index [BMI] 39.0-39.9, adult; K21.9 Gastro-esophageal reflux disease without esophagitis

== ENCOUNTER 2024-03-09 12:36 | Outpatient (AMB) | payer OTHER, SELFPAY ==
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
== END 2024-03-09 13:37 | disposition home or self-care (01) ==
PROVIDERS: PCP Internal Medicine; Visit Provider Internal Medicine
DX: M54.32 Sciatica, left side (principal); M53.3 Sacrococcygeal disorders, not elsewhere classified; V89.2XXA Person injured in unspecified motor-vehicle accident, traffic, initial encounter; Z04.3 Encounter for examination and observation following other accident

== ENCOUNTER → 2024-03-09 16:10 | Outpatient (BNV) | payer OTHER, SELFPAY | PROVIDERS: PCP Internal Medicine; Visit Provider Radiology Diagnostic Radiology | DX: M51.362 Other intervertebral disc degeneration, lumbar region with discogenic back pain and lower extremity pain (principal); V89.2XXA Person injured in unspecified motor-vehicle accident, traffic, initial encounter | CPT/HCPCS: 72100; 72220 ==

== ENCOUNTER 2024-04-06 13:21 | Outpatient (AMB) | payer OTHER, SELFPAY ==
--- NOTE | 2024-04-06 13:22 | A.OFFPC_ITS ---
Vital Signs 04/06/24 13:26 Height 5 ft 6 in Weight 237 lb BMI 38.2 BP 120/78 Blood Pressure Location Rt brachial Position Sitting Pulse 94 Pulse Source Pulse Oximeter Pulse Oximetry (%) 100 Oxygen Delivery Method Room Air Intake Visit Reasons: 4 weeks f/up-reg visit Allergies lorazepam Allergy (Verified 04/06/24 13:23) Unknown prednisone Adverse Reaction (Verified 04/06/24 13:23) migraines Medication List - Last Reconciled 04/06/24 by Prashant Andersen MD buspirone 5 mg PO .qd PRN 30 days diclofenac potassium 50 mg PO DAILY PRN levonorgestrel (Mirena) intrauterine norethindrone (contraceptive) 0.35 mg PO DAILY pantoprazole 40 mg PO DAILY Tobacco use date assessed: 04/06/24 Dental Screening Dental Screen Date: 04/06/24 Did you have a dental visit in the last 12 months?: Yes Did you have a dental problem in the last 6 months where you did not have access to dental care?: No Was dental information given to patient?: Patient has dentist HPI 4 weeks f/up-reg visit HPI Details - The patient is a 28-year-old female pr esenting for follow-up on anxiety. - buspirone was prescribed last visit, s he reports effective control of anxiety symptoms with no side effects. - Experiences of high anxiety are infreq uent recently, leading to rare use of the buspirone. - GERD is stable with pantoprazole [facility] Patient Instructions - Continue using buspirone as needed for managing anxiety. - Monitor for any side effects or change s in anxiety levels. - Follow prescribed treatment for gastro intestinal issues. Review of Systems - Psychiatry: Reports anxiety, controlle d with medication and no side effects. - Gastrointestinal: Reports use of medic ation for gastrointestinal issues without specifying symptoms. 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 motor se nsory intact - Skin: Normal turgor PFSH Medical History Depression Refused influenza vaccine Morbid obesity Generalized anxiety disorder Heartburn H/O No known health problems Family History Mother Hypertension Anemia H/O kidney disease H/O major depression H/O anxiety disorder Paternal Grandmother H/O malignant neoplasm of breast Sister H/O: depression Social History Housing: House Alcohol intake: current Alcohol intake frequency: a few times a month Patient Tobacco Use Status: Never used Tobacco e-Cigarette/Vaping Use: Never Used Substance Use Type: Marijuana service: No Current occupational status: employed 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 1. Little interest or pleasure in doing things: not at all 2. Feeling down, depressed, or hopeless: not at all 3. Trouble falling or staying asleep, or sleeping too much: not at all 4. Feeling tired or having little energy: not at all 5. Poor appetite or overeating: not at all 6. Feeling bad about yourself - or that you are a failure or have let yourself or your family down: not at all 7. Trouble concentrating on things, such as reading the newspaper or watching television: not at all 8. Moving or speaking so slowly that other people could have noticed. Or the opposite - being so fidgety or restless that you have been moving around a lot more than usual: not at all 9. Thoughts that you would be better off or of hurting yourself in some way: not at all Total score: 0 Depression Screening Interpretation: Negative Depression Screening Done: Yes 48813 - PHQ-9 Billing: Yes Source: Developed by Drs. Duran L. SalomeVianey fair, Hector Ro and colleagues, with an educational socorro from [employer]. Thrive Questionnaire Date Thrive assessed: 04/06/24 I am a: Patient What is your living situation today?: I have a steady place to live Within the past 12 months, did the food you bought not last and you didn't have the money to get more?: I choose not to answer this question Within the past 12 months, did you worry whether your food would run out before you got money to buy more?: I choose not to answer this question Do you have trouble paying for medicines?: No Do you have trouble getting transportation to medical appointments?: No Do you have trouble paying your heating and electricity bill?: No Do you have trouble taking care of your child, family member or friend?: No Do you have trouble with day-to-day activities such as bathing, preparing meals, shopping, managing finances, etc.?: No Are you currently unemployed and looking for a job?: No Are you interested in more education?: Yes Please select the resources that you would like help with: None Currently or been in a relationship where the following occur: I choose not to answer THRIVE Score: 0 AUDIT C Alcohol Use Questionnaire (AUDIT-C) 1. How often do you have a drink containing alcohol?: Monthly or less 2. How many drinks containing alcohol do you have on a typical day when you are drinking?: 1 or 2 3. How often do you have six or more drinks on one occasion?: Never Total Score: 1 Score Reviewed/Action Taken: Yes MARY-7 AMB Questionnaire MARY-7 Date MARY - 7 assessed: 04/06/24 Feeling nervous, anxious, or on edge: 1 = Several days Not being able to stop or control worryin = Not at all Worrying too much about different things: 0 = Not at all Trouble relaxin = Not at all Being so restless that it is hard to sit still: 0 = Not at all Becoming easily annoyed or irritable: 0 = Not at all Feeling afraid as if something awful might happen: 0 = Not at all Total MARY-7 score (0-4 normal; 5-9 mild; 10-14 moderate; 15-21 severe): 1 Source: Developed by Vianey Cabrera, Hector Ro and colleagues, with an educational socorro from [employer]. MARY-7 Assessment Billing MARY-7 Assessment Tool: MARY-7 Assessment 06458 Physical exam (Primary Care) Vital Signs: Last Vital Signs Pulse 94 04/06/24 13:26 BP 120/78 04/06/24 13:26 Pulse Ox 100 04/06/24 13:26 Oxygen Delivery Method Room Air 04/06/24 13:26 BMI result Body Mass Index 38.2 Tobacco/Smoking Status: Tobacco use Status Tobacco use date assessed 04/06/24 04/06/24 13:26 Patient Tobacco Use Status Never used Tobacco 04/06/24 13:26 e-Cigarette/Vaping Use Never Used 04/06/24 13:26 PHQ-9: PHQ-9 Score PHQ-9: Total score 0 04/06/24 13:29 Depression Screening Interpretation: Negative Thrive Assessment: Date of Thrive Assessment Date Thrive assessed 04/06/24 04/06/24 13:29 Currently or been in a relationship where the following occur: I choose not to answer Coding Level of Care Code Est Pt Level 3 (34514) Diagnoses Generalized anxiety disorder F41.1 Heartburn R12 Chronic GERD K21.9 Additional Codes MARY-7 Assessment Billing - MARY-7 Assessment Tool: MARY-7 Assessment 79764 ([id number]) PHQ-9 - 31943 - PHQ-9 Billing: Yes ([id number]) Assessment & Plan Assessment & Plan (1) Generalized anxiety disorder: Code(s): F41.1 - Generalized anxiety disorder Category: Medical (2) Heartburn: Code(s): R12 - Heartburn Category: Medical (3) Chronic GERD: Code(s): K21.9 - Gastro-esophageal reflux disease without esophagitis Category: Medical Plan - The patient is a 28-year-old female presenting for follow-up on anxiety. - buspirone was prescribed last visit, she reports effective control of anxiety symptoms with no side effects. - Experiences of high anxiety are infrequent recently, leading to rare use of the buspirone. - GERD is stable with pantoprazole through Gastroenterology Patient Instructions - Continue using buspirone as needed for managing anxiety. - Monitor for any side effects or changes in anxiety levels. - Follow prescribed treatment for gastrointestinal issues. Orders: Orders MR lumbar spine wo con Today M51.27 - Other intervertebral disc displacement, lumbosacral region, M53.3 - Sacrococcygeal disorders, not elsewhere classified, M54.32 - Sciatica, left side
[2024-04-06 13:26] VITALS: BP 120/78; PULSE 94; O2SAT 100; BMI 38.2
--- OUTSIDE RECORDS SUMMARY | 2024-04-06 14:20 | XMS_ITS | Clinical Summary ---
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 Name Role Phone Unavailable Primary Care Provider Unavailabl e Immunizations Name Administration Dates Next Due DTP 04/26/1998, 7,1996,10/06 DTaP 5 01/07/2001 HPV, Quadrivalent 08/15/2010,04/17/2010,02/15/20 10 Hep A, ped/adol 08/16/2014 Hep B, ped/adol 02/17/1997,1996,1996 Hib (PRP-T) 01/02/1998, 7,1996,10/06 IPV 01/07/2001,1996 Influenza Split 02/14/2010 Influenza, injectable, quadr ivalent, preservative free 12/24/2015 Influenza, injectable, trivalent 12/05/2008 Influenza, intranasal, quadrivalent 01/21/2013 Influenza, intranasal, trivalent 12/09/2011 MMR 01/07/2001,01/02/1998 Meningococcal Conj (Menactra) MCV4P 08/16/2014,0 12/05/2008 OPV 02/17/1997,1996 Tdap 12/05/2008 Varicella 12/05/2008,01/02/1998 Family History Relation Name Status Comments Father Alive Father: Alive a nd well Maternal Grandmother Materna l grandmother: Hypertension Mother Mother: obese Sister Alive Sister: Obesity Social History Tobacco Use Types Packs/Day Years Used Date Smoking Tobacco: Never Comments:Never smoker Comments Unknown Sex and Gender Information Value Date Recorded Sex Assigned at Not on file Legal Sex Female 5:09 PM EDT Gender Identity Not on file Sexual Orientation Not on file Last Filed Vital Signs Vital Sign Reading Time Taken Comments Blood Pressure 100/70 12/24/2015 12:00 AM EDT Pulse 91 09/08/2015 12:00 AM EDT Temperature 36.4 ??C (97.6 ??F) 12/24/2015 12:00 AM E DT Respiratory Rate - - Oxygen Saturation - - Inhaled Oxygen Concentration - - Weight 114 kg (251 lb 6.4 oz) 12/24/2015 12:00 A M EDT Height 167.6 cm (5' 6 ) 09/08/2015 12:00 AM EDT Body Mass Index 40.58 09/08/2015 12:00 AM EDT Plan of Treatment Health Maintenance Due Date Last Done Comments Hepatitis A Vaccines (2 of 2 - 2-dose series) 02/15/2015 08/16/2014 DTaP,Tdap,and Td Vaccines (7 - Td or Tdap) 12/05/2018 12/05/2008, 01/07/2001, 04/26/1998, Additional history exists Influenza Vaccines (#1) 2023 12/24/19 16, 01/21/2013, 12/09/2011, Additional history exists COVID-19 Vaccine ( season) 2023 Hepatitis B Vaccines Completed 02/17/1997, 1996, 1996 HIB Vaccines Completed 01/02/1998, 02/07, 1996, Additional history exists IPV Vaccines Completed 01/07/2001, 02/07, 1996, Additional history exists MMR Vaccines Completed 01/07/2001, 01/02/1998 Varicella Vaccines Completed 12/05/2008, 01/02/1998 HPV Vaccines Completed 08/15/2010, 0210/2010, 02/14/2010 Meningococcal Vaccine Completed 08/16/2014, 009 Men B Vaccine Aged Out No longer elig ible based on patient's age to complete this topic Pneumococcal Vaccine Aged Out No long er eligible based on patient's age to complete this topic Procedures * Due to [place] [employer] law, this organization might not be sharing sensitive test results. Procedure Name Priority Date/Time Associated Diagnosis Comments CHLAMYDIA AND GONORRHEA, AMPLIFIED Routine 09/12/2015 2:09 PM EDT from Last 3 Months or Most Recently Relevant to Health Maintenance Results * Due to [place] state law, this organization might not be sharing sensitive test results. * Chlamydia and Gonorrhoea, Amplified (09/12/2015 2:09 PM EDT) URINE GC AMP PROBE NEGATIVE [facility] Comment: No Neisseria Gonorrhoeae RNA detected in this patient's sample (REFERENCE RANGE/NORMAL VALUE: NOT DETECTED) NOTE: This test uses geothermal electrical engineer-mediated amplification method to detect rRNA from C.Trachomatis and N.Gonorrhoeae. A negative result does not preclude infection. In the case of a negative urine result, testing of an endocervical(female) or urethral(male) specimen is recommended if there is high clinical suspicion of infection. The performance characteristics of this test have not been evaluated in children. The Aptima Combo2 assay is not intended for the evaluation of suspected sexual abuse or for other medico-legal indications. The ordering provider should assess if the patient had consensual sex without risk of sexual abuse. Consult the [facility] [place] if needed. Contact phone number . Therapeutic failure or success cannot be determined with the Aptima Combo2 assay since nucleic acid may persist following appropriate antimicrobial therapy. The Centers for Disease Control and Prevention (CDC) recommends confirmatory retesting using culture or a different nucleic acid amplification test when positive results occur, if indicated. Testing performed or reported by [facility], a Service of [facility], [address] [place] [address] CLIA ??[id number] Mike Small MD, PhD, Mental Health Therapist URINE CHLAMYDIA AMP PROBE NEGATIVE [facility] Comment: No Chlamydia Trachomatis RNA detected in this patient's sample (REFERENCE RANGE/NORMAL VALUE: NOT DETECTED) 09/12/2015 2:09 PM EDT Narrative [facility] - 09/12/2015 2:09 PM EDT URINE CHLAMYDIA GC AMP PROBE us Natasha Jaramillo MD LAB MICROBIOLOGY - GENERAL O RDERABLES Final Result [facility] [address] [place] [address], [place] from Last 3 Months or Most Recently Relevant to Health Maintenance
--- OUTSIDE RECORDS SUMMARY | 2024-04-06 14:20 | XMS_ITS | Encounter Summary ---
Author Organization [facility] Address [address] [place] [address] Phone Care Team Providers Care Loading Dock Hand Name Role Phone Natasha Jaramillo MD Primary Care Provider [phone] Encounter Details Date Type Department Care Team (Late st Contact Info) Description 10/24/2016 Conversion Encounter [facility] [place] [address] [place] [address] Social History Tobacco Use Types Packs/Day Years Used Date Smoking Tobacco: Never Comments:Never smoker Comments Unknown Sex and Gender Information Value Date Recorded Sex Assigned at Not on file Legal Sex Female 5:09 PM EDT Gender Identity Not on file Sexual Orientation Not on file documented as of this encounter Plan of Treatment Not on file documented as of this encounter Visit Diagnoses Not on filedocumented in this encounter Care Teams Loading Dock Hand Relationship Specialty Start Date End Date Natasha Jaramillo MD [address] [place] [address] PCP - General 10/18/16 06/30/22 documented as of this encounter
--- OUTSIDE RECORDS SUMMARY | 2024-04-06 14:20 | XMS_ITS | Encounter Summary ---
Author Organization [facility] Address [address] [place] [address] Phone Care Team Providers Care Structural Steel Trades Worker Name Role Phone Natasha Jaramillo MD Primary Care Provider Encounter Details Date Type Department Care Team (Late st Contact Info) Description 06/28/2016 Documentation [facility] [place] [facility] [address] [place] [address] Family Medicine, Physician [address] [place], [place] [phone] Social History Tobacco Use Types Packs/Day Years [...] on filedocumented in this encounter Care Teams Structural Steel Trades Worker Relationship Specialty Start Date End Date Natasha Jaramillo MD [address] [place], [place] [address] [address] PCP - General 10/18/16 06/30/22 documented as of this encounter
--- OUTSIDE RECORDS SUMMARY | 2024-04-06 14:20 | XMS_ITS | Encounter Summary ---
Author Organization [facility] Address [address] [place] [address] Phone Care Team Providers Care Fish Filleter Name Role Phone Natasha Jaramillo MD Primary Care Provider [phone] Encounter Details Date Type Department Care Team (Late st Contact Info) Description 12/17/2011 Documentation [facility] Family [facility] [address] [place] [address] Family Medicine, Physician [address] [place], [place] [phone] Social History Tobacco Use Types Packs/Day Years Used Date Smoking Tobacco: Never Assessed Comments Unknown Sex and Gender Information Value Date Recorded Sex Assigned at Not on file Legal Sex Female 5:09 PM EDT Gender Identity Not on file Sexual Orientation Not on file documented as of this encounter Plan of Treatment Not on file documented as of this encounter Visit Diagnoses Not on filedocumented in this encounter Care Teams Fish Filleter Relationship Specialty Start Date End Date Natasha Jaramillo MD [address] [place], [place] [address] [address] PCP - General 10/18/16 06/30/22 documented as of this encounter
== END 2024-04-06 14:36 | disposition home or self-care (01) ==
PROVIDERS: PCP Internal Medicine; Visit Provider Internal Medicine
DX: F41.1 Generalized anxiety disorder (principal); R12 Heartburn; K21.9 Gastro-esophageal reflux disease without esophagitis

== ENCOUNTER 2024-04-06 13:21 | Outpatient (AMB) | payer OTHER, SELFPAY ==
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
== END 2024-04-06 14:36 | disposition home or self-care (01) ==
PROVIDERS: PCP Internal Medicine; Visit Provider Internal Medicine
DX: M54.32 Sciatica, left side (principal); V89.2XXA Person injured in unspecified motor-vehicle accident, traffic, initial encounter; M53.3 Sacrococcygeal disorders, not elsewhere classified; M51.27 Other intervertebral disc displacement, lumbosacral region

== ENCOUNTER → 2024-04-06 13:21 | Outpatient (BNVA) | payer OTHER, SELFPAY | PROVIDERS: PCP Internal Medicine; Visit Provider Internal Medicine | DX: M54.32 Sciatica, left side (principal); M53.3 Sacrococcygeal disorders, not elsewhere classified; M51.27 Other intervertebral disc displacement, lumbosacral region | CPT/HCPCS: 96127; 99212 ==

== ENCOUNTER 2024-04-14 07:55 | Outpatient (AMB) | payer OTHER, SELFPAY ==
--- OUTSIDE RECORDS SUMMARY | 2024-04-14 07:56 | XMS_ITS | Encounter Summary ---
Author Organization [facility] Address [address] [place] [address] Phone Care Team Providers Care Survival Equipment Repairer Name Role Phone Natasha Jaramillo MD Primary Care Provider Encounter Details Date Type Department Care Team (Late st Contact Info) Description 06/28/2016 Documentation [facility] [place] [facility] [address] [place] [address] Family Medicine, Physician [address] [place], [place] [phone] Social History Tobacco Use Types Packs/Day Years [...] on filedocumented in this encounter Care Teams Survival Equipment Repairer Relationship Specialty Start Date End Date Natasha Jaramillo MD [address] [place], [place] [address] [address] PCP - General 10/18/16 06/30/22 documented as of this encounter
--- OUTSIDE RECORDS SUMMARY | 2024-04-14 07:56 | XMS_ITS | Encounter Summary ---
Author Organization [facility] Address [address] [place] [address] Phone Care Team Providers Care Water System Operator Name Role Phone Natasha Jaramillo MD Primary Care Provider [phone] Encounter Details Date Type Department Care Team (Late st Contact Info) Description 10/24/2016 Conversion Encounter [facility] [place] [address] [place] [address] Social History Tobacco Use Types Packs/Day Years [...] on filedocumented in this encounter Care Teams Water System Operator Relationship Specialty Start Date End Date Natasha Jaramillo MD [address] [place] [address] PCP - General 10/18/16 06/30/22 documented as of this encounter
--- OUTSIDE RECORDS SUMMARY | 2024-04-14 07:56 | XMS_ITS | Clinical Summary ---
Author Organization [facility] Address [address] [place], [place] [phone] Phone Care Team Providers Care Finance Executive Name Role Phone Unavailable Primary Care Provider [...] complete this topic Procedures * Due to [place] [employer] law, this organization might not be sharing sensitive test results. Procedure Name Priority Date/Time Associated Diagnosis Comments CHLAMYDIA AND GONORRHEA, AMPLIFIED Routine 09/12/2015 2:09 PM EDT from Last 3 Months or Most Recently Relevant to Health Maintenance Results * Due to [place] state law, this organization might not be sharing sensitive test results. * Chlamydia and Gonorrhoea, Amplified (09/12/2015 2:09 PM EDT) URINE GC AMP PROBE NEGATIVE [facility] Comment: No Neisseria Gonorrhoeae RNA detected in this patient's sample (REFERENCE RANGE/NORMAL VALUE: NOT DETECTED) NOTE: This test uses community living instructor-mediated amplification method to detect rRNA from C.Trachomatis [...] without risk of sexual abuse. Consult the [facility] [place] if needed. Contact phone number . Therapeutic failure or success cannot be determined with the Aptima Combo2 assay since nucleic acid may persist following appropriate antimicrobial therapy. The Centers for Disease Control and Prevention (CDC) recommends confirmatory retesting using culture or a different nucleic acid amplification test when positive results occur, if indicated. Testing performed or reported by [facility], a Service of [facility], [address] [place] [address] CLIA ??[id number] Mike Small MD, PhD, Ager Tender URINE CHLAMYDIA AMP PROBE NEGATIVE [facility] Comment: No Chlamydia Trachomatis RNA detected in this patient's sample (REFERENCE RANGE/NORMAL VALUE: NOT DETECTED) 09/12/2015 2:09 PM EDT Narrative [facility] - 09/12/2015 2:09 PM EDT URINE CHLAMYDIA GC AMP PROBE us Natasha Jaramillo MD LAB MICROBIOLOGY - GENERAL O RDERABLES Final Result [facility] [address] [place] [address], [place] from Last 3 Months or Most Recently Relevant to Health Maintenance
--- OUTSIDE RECORDS SUMMARY | 2024-04-14 07:56 | XMS_ITS | Encounter Summary ---
Author Organization [facility] Address [address] [place] [address] Phone Care Team Providers Care Swager Operator Name Role Phone Natasha Jaramillo MD Primary Care Provider Encounter Details Date Type Department Care Team (Late st Contact Info) Description 12/17/2011 Documentation [facility] Family Medicine [address] [place] [address] Family Medicine, Physician [address] [place], [place] [phone] Social History Tobacco Use Types Packs/Day Years [...] on filedocumented in this encounter Care Teams Swager Operator Relationship Specialty Start Date End Date Natasha Jaramillo MD [address] [place], [place] [address] [address] PCP - General 10/18/16 06/30/22 documented as of this encounter
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
[2024-04-14 08:04] VITALS: BMI 38.2
== END 2024-04-14 08:21 | disposition home or self-care (01) ==
PROVIDERS: PCP Internal Medicine; Visit Provider Orthopaedic Surgery
DX: S80.02XA Contusion of left knee, initial encounter (principal); Z04.3 Encounter for examination and observation following other accident
CPT/HCPCS: 99213

== ENCOUNTER 2024-06-11 11:43 | Outpatient (AMB) | payer OTHER, SELFPAY ==
[2024-06-11 11:53] VITALS: BP 120/80; PULSE 97; O2SAT 99; BMI 37.8
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
--- OUTSIDE RECORDS SUMMARY | 2024-06-11 13:47 | XMS_ITS | Clinical Summary ---
Author Organization [facility] Address [address] [place], [place] [id number] Phone Care Team Providers Care Bradder Name Role Phone Unavailable Primary Care Provider Unavailabl e Immunizations Immunization Administration Dates Next Due DTP 04/26/1998, 7,1996,10/06 [...] complete this topic Procedures * Due to [place] law, this organization might not be sharing sensitive test results. Procedure Name Priority Date/Time Associated Diagnosis Comments CHLAMYDIA AND GONORRHEA, AMPLIFIED Routine 09/12/2015 2:09 PM EDT from Last 3 Months or Most Recently Relevant to Health Maintenance Results * Due to [place] state law, this organization might not be sharing sensitive test results. * Chlamydia and Gonorrhoea, Amplified (09/12/2015 2:09 PM EDT) URINE GC AMP PROBE NEGATIVE [facility] Comment: No Neisseria Gonorrhoeae RNA detected in this patient's sample (REFERENCE RANGE/NORMAL VALUE: NOT DETECTED) NOTE: This test uses glassblower-mediated amplification method to detect rRNA from C.Trachomatis [...] without risk of sexual abuse. Consult the [facility] if needed. Contact phone number . Therapeutic failure or success cannot be determined with the Aptima Combo2 assay since nucleic acid may persist following appropriate antimicrobial therapy. The Centers for Disease Control and Prevention (CDC) recommends confirmatory retesting using culture or a different nucleic acid amplification test when positive results occur, if indicated. Testing performed or reported by [facility], a Service of [facility], [address] [place] [id number] CLIA ??[id number] Mike Small MD, PhD, Surgical Services Asst URINE CHLAMYDIA AMP PROBE NEGATIVE [facility] Comment: No Chlamydia Trachomatis RNA detected in this patient's sample (REFERENCE RANGE/NORMAL VALUE: NOT DETECTED) 09/12/2015 2:09 PM EDT Narrative [facility] - 09/12/2015 2:09 PM EDT URINE CHLAMYDIA GC AMP PROBE us Natasha Jaramillo MD LAB MICROBIOLOGY - GENERAL O RDERABLES Final Result [facility] [address] [place] [id number], [place] from Last 3 Months or Most Recently Relevant to Health Maintenance
--- OUTSIDE RECORDS SUMMARY | 2024-06-11 13:47 | XMS_ITS | Encounter Summary ---
Author Organization [facility] Address [address] [place] [address] Phone Care Team Providers Care Nutritional Chemist Name Role Phone Natasha Jaramillo MD Primary Care Provider [phone] Encounter Details Date Type Department Care Team (Late st Contact Info) Description 06/28/2016 Documentation [facility] Family Medicine [address] [place] [address] Family Medicine, Physician [address] [place], [place] [id number] Social History Tobacco Use Types Packs/Day Years [...] on filedocumented in this encounter Care Teams Nutritional Chemist Relationship Specialty Start Date End Date Natasha Jaramillo MD [address] [place], [place] [address] PCP - General 10/18/16 06/30/22 documented as of this encounter
--- OUTSIDE RECORDS SUMMARY | 2024-06-11 13:47 | XMS_ITS | Encounter Summary ---
Author Organization [facility] Address [address] [place] [address] Phone Care Team Providers Care Paint Spray Inspector Name Role Phone Natasha Jaramillo MD Primary Care Provider [phone] Encounter Details Date Type Department Care Team (Late st Contact Info) Description 10/24/2016 Conversion Encounter [facility] [address] [place] [address] Social History Tobacco Use Types Packs/Day Years [...] on filedocumented in this encounter Care Teams Paint Spray Inspector Relationship Specialty Start Date End Date Natasha Jaramillo MD [address] [place] [address] PCP - General 10/18/16 06/30/22 documented as of this encounter
--- OUTSIDE RECORDS SUMMARY | 2024-06-11 13:47 | XMS_ITS | Encounter Summary ---
Author Organization [facility] Address [address] [place] [address] Phone Care Team Providers Care Welt Cutter Name Role Phone Natasha Jaramillo MD Primary Care Provider Encounter Details Date Type Department Care Team (Late st Contact Info) Description 12/17/2011 Documentation [facility] Family Medicine [address] [place] [address] Family Medicine, Physician [address] [place], [place] [phone] Social History Tobacco Use Types Packs/Day Years [...] on filedocumented in this encounter Care Teams Welt Cutter Relationship Specialty Start Date End Date Natasha Jaramillo MD [address] [place], [place] [address] [address] PCP - General 10/18/16 06/30/22 documented as of this encounter
== END 2024-06-11 12:36 | disposition home or self-care (01) ==
LOC: HO.HMCC 11:45
PROVIDERS: PCP Internal Medicine; Visit Provider Internal Medicine
DX: M25.562 Pain in left knee (principal); S89.92XA Unspecified injury of left lower leg, initial encounter; V89.2XXA Person injured in unspecified motor-vehicle accident, traffic, initial encounter; M53.3 Sacrococcygeal disorders, not elsewhere classified; M51.27 Other intervertebral disc displacement, lumbosacral region

== ENCOUNTER 2025-01-26 09:19 | Outpatient (AMB) | payer OTHER, SELFPAY ==
[2025-01-26 09:27] VITALS: BP 120/78; PULSE 80; O2SAT 98; BMI 36.2
--- NOTE | 2025-01-26 09:27 | A.OFFPC_ITS ---
Vital Signs 01/26/25 09:27 Height 5 ft 6 in Weight 224 lb BMI 36.2 BP 120/78 Blood Pressure Location Lt brachial Position Sitting Pulse 80 Pulse Source Pulse Oximeter Pulse Oximetry (%) 98 Intake Visit Reasons: Digestion issues & Psych referral Allergies lorazepam Allergy (Verified 01/26/25 09:28) Unknown prednisone Adverse Reaction (Verified 01/26/25 09:28) migraines Medication List - Last Reconciled 01/26/25 by Prashant Andersen MD buspirone 5 mg PO .qd PRN 30 days diclofenac potassium 50 mg PO DAILY PRN levonorgestrel (Mirena) intrauterine pantoprazole 40 mg PO DAILY Tobacco use date assessed: 06/11/24 Dental Screening Dental Screen Date: 06/11/24 HPI HPI Comments History of Present Illness Details History of Present Illness The patient is a 29-year-old female presenting for a referral for therapy and evaluation of chronic bowel problems. Anxiety and Bereavement: - The patient is requesting a referral f or therapy to address unresolved issues, particularly the passing of her mother. - She feels that she suppresses her feel ings despite being a generally happy person and is now in a good headspace to process them. - The patient has a previous prescriptio n for as-needed anxiety medication for panic attacks but states her anxiety symptoms have improved. Chronic Diarrhea: - The patient reports a lifelong history of bowel problems, characterized by stools that are rarely solid and are constantly liquid. - She experiences an immediate urge to d efecate after eating or drinking, noting this occurs even with black coffee. - She is concerned about an abnormally f oul stool odor.. - She also reports experiencing gas and acid, questioning if she might have GERD. - She wakes up with phlegm every morning , which was noted could be related to allergies or reflux. [facility] Medical History Depression Refused influenza vaccine Morbid obesity Generalized anxiety disorder Heartburn H/O No known health problems Family History Mother Hypertension Anemia H/O kidney disease H/O major depression H/O anxiety disorder Paternal Grandmother H/O malignant neoplasm of breast Sister H/O: depression Social History Housing: House Alcohol intake: current Alcohol intake frequency: a few times a month Patient Tobacco Use Status: Never used Tobacco e-Cigarette/Vaping Use: Never Used Substance Use Type: Marijuana service: No Current occupational status: employed 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, 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 Cognitive needs: No Hearing needs: No Vision needs: Yes Female Reproductive History Menstrual Age of Menarche: 13 Questionnaire Thrive Questionnaire Date Thrive assessed: 04/06/24 I am a: Patient What is your living situation today?: I have a steady place to live Within the past 12 months, did the food you bought not last and you didn't have the money to get more?: I choose not to answer this question Within the past 12 months, did you worry whether your food would run out before you got money to buy more?: I choose not to answer this question Do you have trouble paying for medicines?: No Do you have trouble getting transportation to medical appointments?: No Do you have trouble paying your heating and electricity bill?: No Do you have trouble taking care of your child, family member or friend?: No Do you have trouble with day-to-day activities such as bathing, preparing meals, shopping, managing finances, etc.?: No Are you currently unemployed and looking for a job?: No Are you interested in more education?: Yes Please select the resources that you would like help with: None Currently or been in a relationship where the following occur: I choose not to answer THRIVE Score: 0 MARY-7 AMB Questionnaire MARY-7 Date MARY - 7 assessed: 04/06/24 Source: Developed by Drs. Duran Mcmahon, Vianey Osborne, Hector Ro and colleagues, with an educational socorro from [employer]. Review of Systems Narrative Review of Systems - General: No fever no chills - Neurological: No headaches no dizziness - Ear nose throat: No sore throat no hearing difficulty no ear pain - Cardiovascular: No syncope, no chest pain, no palpitations - Endocrine: No polyuria polydipsia no heat intolerance - Genitourinary: No dysuria , no blood in urine Physical exam (Primary Care) Vital Signs: Last Vital Signs Pulse 80 01/26/25 09:27 BP 120/78 01/26/25 09:27 Pulse Ox 98 01/26/25 09:27 BMI result Body Mass Index 36.2 Tobacco/Smoking Status: Tobacco use Status Tobacco use date assessed 06/11/24 01/26/25 09:32 Patient Tobacco Use Status Never used Tobacco 01/26/25 09:32 e-Cigarette/Vaping Use Never Used 01/26/25 09:32 Thrive Assessment: Date of Thrive Assessment Date Thrive assessed 04/06/24 01/26/25 09:32 Currently or been in a relationship where the following occur: I choose not to answer Narrative Physical Exam General: No acute distress HEENT: No acute findings Neck: Supple Respiratory system: Able to talk in full sentences, no audible wheeze Cardiovascular: S1-S2 regular in rate and rhythm Gastrointestinal: abdomen is soft, BS + FILLER SHAKER non focal skin normal turger Coding Level of Care Code Est Pt Level 4 (56011) Diagnoses Abdominal cramping R10.9 Abdominal bloating R14.0 Loose stools R19.5 Generalized anxiety disorder F41.1 Class 2 obesity due to excess calories without serious comorbidity with body mass index (BMI) of 39.0 to 39.9 in adult E66.812; E66.09; Z68.39 Body mass index: BMI 39.0-39.9 Obesity classification: adult class 2 (BMI 35 - 39.9) Serious obesity comorbidity presence: without serious comorbidity Assessment & Plan Assessment & Plan (1) Abdominal cramping: Code(s): R10.9 - Unspecified abdominal pain Category: Medical (2) Abdominal bloating: Code(s): R14.0 - Abdominal distension (gaseous) Category: Medical (3) Loose stools: Code(s): R19.5 - Other fecal abnormalities Category: Medical (4) Generalized anxiety disorder: Code(s): F41.1 - Generalized anxiety disorder Category: Medical (5) Obesity due to excess calories: Code(s): E66.09 - Other obesity due to excess calories Category: Medical Qualifiers: Body mass index: BMI 39.0-39.9 Obesity classification: adult class 2 (BMI 35 - 39.9) Serious obesity comorbidity presence: without serious comorbidity Qualified Code(s): E66.812 - Obesity, class 2; E66.09 - Other obesity due to excess calories; Z68.39 - Body mass index [BMI] 39.0-39.9, adult Plan Problem List - Anxiety - Chronic diarrhea - Bereavement - Health Maintenance: Follow-up physical exam recommended. Plan - A referral will be made for therapy; a staff member will contact the patient by phone to coordinate. - Prescribed buspirone to be taken as needed for anxiety, up to three times a day. - Will order lab tests for gluten sensitivity. - Recommended an elimination diet, starting with milk products, to assess for lactose intolerance. - Advised adding probiotics. - A referral will be made to a pot press operator for further evaluation of chronic diarrhea and possible reflux. - Recommended a follow-up visit in three weeks for a physical exam and to assess response to new medication. Orders: Orders Transglutaminase Ab IgG Today K90.41 - Non-celiac gluten sensitivity Referrals Gastroenterology Referral R10.9 - Unspecified abdominal pain, R14.0 - Abdominal distension (gaseous), R19.5 - Other fecal abnormalities Medications: New buspirone 7.5 mg PO BID PRN 30 tabs 0RF anxiety
--- OUTSIDE RECORDS SUMMARY | 2025-01-26 17:14 | XMS_ITS | Clinical Summary ---
Author Organization [facility] Address [address] [place], [place] [address] Phone Care Team Providers Care Soil Fertility Specialist Name Role Phone Unavailable Primary Care Provider [...] 91 09/08/2015 12:00 AM EDT Temperature 36.4 C (97.6 F) 12/24/2015 12:00 AM EDT Respiratory Rate - - Oxygen Saturation - [...] 04/26/1998, Additional history exists Influenza Vaccines (#1) 2024 12/24/19 16, 01/21/2013, 12/09/2011, Additional history exists COVID-19 Vaccine (2024- season) 2024 Hepatitis B Vaccines Completed 02/17/1997, 1996, 1996 HIB Vaccines Completed 01/02/1998, 02/07, 1996, Additional history exists IPV Vaccines Completed 01/07/2001, 02/07, 1996, Additional history exists MMR Vaccines Completed 01/07/2001, 01/02/1998 Varicella Vaccines Completed 12/05/2008, 01/02/1998 HPV Vaccines Completed 08/15/2010, 10/2010, 02/14/2010 Meningococcal Vaccine Completed 08/16/2014, 009 Men B Vaccine Aged Out No longer elig ible based on patient's age to complete this topic Pneumococcal Vaccine Aged Out No long er eligible based on patient's age to complete this topic Procedures * Due to [place] [employer] law, this organization might not be sharing sensitive test results. Procedure Name Priority Date/Time Associated Diagnosis Comments CHLAMYDIA AND GONORRHEA, AMPLIFIED Routine 09/12/2015 2:09 PM EDT from Last 3 Months or Most Recently Relevant to Health Maintenance Results * Due to [place] state law, this organization might not be sharing sensitive test results. * Chlamydia and Gonorrhoea, Amplified (09/12/2015 2:09 PM EDT) [facility] URINE GC AMP PROBE NE[facility]IVE [facility] Comment: No Neisseria Gonorrhoeae RNA detected in this patient's sample (REFERENCE RANGE/NORMAL VALUE: NOT DETECTED) NOTE: This test uses manager finance-mediated amplification method to detect rRNA from C.Trachomatis [...] without risk of sexual abuse. Consult the [facility] [place] if needed. Contact phone number . Therapeutic failure or success cannot be determined with the Aptima Combo2 assay since nucleic acid may persist following appropriate antimicrobial therapy. The Centers for Disease Control and Prevention (CDC) recommends confirmatory retesting using culture or a different nucleic acid amplification test when positive results occur, if indicated. Testing performed or reported by [facility], a Service of [facility], [address] [place] [id number] CLIA [id number] Mike Small MD, PhD, Install And Repair Technician URINE CHLAMYDIA AMP PROBE NEGATIVE [facility] Comment: No Chlamydia Trachomatis RNA detected in this patient's sample (REFERENCE RANGE/NORMAL VALUE: NOT DETECTED) 09/12/2015 2:09 PM EDT Narrative [facility] - 09/12/2015 2:09 PM EDT URINE CHLAMYDIA GC AMP PROBE us Natasha Jaramillo MD LAB MICROBIOLOGY - GENERAL O RDERABLES Final Result [facility] [address] [place] [address], [place] from Last 3 Months or Most Recently Relevant to Health Maintenance
--- OUTSIDE RECORDS SUMMARY | 2025-01-26 17:14 | XMS_ITS | Encounter Summary ---
Author Organization [facility] Address [address] [place] [address] Phone Care Team Providers Care Retail Advertising Executive Name Role Phone Natasha Jaramillo MD Primary Care Provider [phone] Encounter Details Date Type Department Care Team (Late st Contact Info) Description 06/28/2016 Documentation [facility] [place] Family Medicine [address] [place] [address] Family Medicine, Physician [address] [place], [place] [phone] Social History Tobacco Use Types Packs/Day Years [...] on filedocumented in this encounter Care Teams Retail Advertising Executive Relationship Specialty Start Date End Date Natasha Jaramillo MD [address] [place], [place] [address] [address] PCP - General 10/18/16 06/30/22 documented as of this encounter
--- OUTSIDE RECORDS SUMMARY | 2025-01-26 17:14 | XMS_ITS | Encounter Summary ---
Author Organization [facility] Address [address] [place] [address] Phone Care Team Providers Care Transitions Rn Care Coordinator Name Role Phone Natasha Jaramillo MD Primary Care Provider Encounter Details Date Type Department Care Team (Late st Contact Info) Description 12/17/2011 Documentation [facility] Family Medicine [address] [place] [address] Family Medicine, Physician [address] [place], [place] [phone] Social History Tobacco Use Types Packs/Day Years [...] on filedocumented in this encounter Care Teams Transitions Rn Care Coordinator Relationship Specialty Start Date End Date Natasha Jaramillo MD [address] [place], [place] [address] [address] PCP - General 10/18/16 06/30/22 documented as of this encounter
--- OUTSIDE RECORDS SUMMARY | 2025-01-26 17:14 | XMS_ITS | Encounter Summary ---
Author Organization [facility] Address [address] [place] [address] Phone Care Team Providers Care Customer Insight Analyst Name Role Phone Natasha Jaramillo MD Primary Care Provider [phone] Encounter Details Date Type Department Care Team (Late st Contact Info) Description 10/24/2016 Conversion Encounter [facility] [place] [address] [place] [address] Social History Tobacco Use Types Packs/Day Years [...] on filedocumented in this encounter Care Teams Customer Insight Analyst Relationship Specialty Start Date End Date Natasha Jaramillo MD [address] [place] [address] PCP - General 10/18/16 06/30/22 documented as of this encounter
== END 2025-01-26 09:42 | disposition home or self-care (01) ==
LOC: HO.HMCC 09:20
PROVIDERS: PCP Internal Medicine; Visit Provider Internal Medicine
DX: R10.9 Unspecified abdominal pain (principal); R14.0 Abdominal distension (gaseous); R19.5 Other fecal abnormalities; F41.1 Generalized anxiety disorder; E66.812 Obesity, class 2; E66.09 Other obesity due to excess calories; Z68.39 Body mass index [BMI] 39.0-39.9, adult

== ENCOUNTER → 2025-01-26 09:19 | Outpatient (BNVA) | payer OTHER, SELFPAY | PROVIDERS: PCP Internal Medicine; Visit Provider Internal Medicine | DX: R14.0 Abdominal distension (gaseous) (principal); R10.9 Unspecified abdominal pain; R19.5 Other fecal abnormalities; F41.1 Generalized anxiety disorder; E66.812 Obesity, class 2; E66.09 Other obesity due to excess calories; Z68.36 Body mass index [BMI] 36.0-36.9, adult | CPT/HCPCS: 99212 ==

== ENCOUNTER 2025-02-22 12:51 | Outpatient (AMB) | payer OTHER, SELFPAY ==
[2025-02-22 12:55] VITALS: BP 118/80; PULSE 80; O2SAT 98; BMI 37.0
--- NOTE | 2025-02-22 12:55 | A.OFFPC_ITS ---
Vital Signs 02/22/25 12:55 Height 5 ft 6 in Weight 229 lb BMI 37.0 BP 118/80 Blood Pressure Location Lt brachial Position Sitting Pulse 80 Pulse Source Pulse Oximeter Pulse Oximetry (%) 98 Intake Visit Reasons: 3 weeks f/up Allergies lorazepam Allergy (Verified 01/26/25 09:28) Unknown prednisone Adverse Reaction (Verified 01/26/25 09:28) migraines Medication List - Last Reconciled 02/22/25 by Prashant Andersen MD buspirone 7.5 mg PO BID PRN levonorgestrel (Mirena) intrauterine pantoprazole 40 mg PO DAILY Tobacco use date assessed: 06/11/24 Dental Screening Dental Screen Date: 06/11/24 HPI 3 weeks f/up HPI Details History of Present Illness The patient is a 29 year old female presenting for follow-up on abdominal pain and anxiety, and also reports new concerns about mood swings and possible bacterial vaginosis. Mood swings and Anxiety: - The patient reports experiencing signi ficant mood swings daily for the last two weeks, describing them as fluctuating between feeling super anxious and wanting to be alone. - She relates these mood changes to stre ssors such as restarting relationships, which leads to hyperfixation and spiraling thoughts about the other person. - The patient also identifies unresolved grief from her mother's passing four years ago and a need for control as contributing factors. - She notes that her mind becomes busy w hen she has too much free time and that she has not been going to the gym for the past two weeks, which she believes contributes to her symptoms. - She has a prescription for buspirone 5 mg for anxiety but has not been taking it recently as she cannot find the medication. - She has been contacted by a therapist but has been unable to schedule an appointment due to work conflicts. Abdominal pain: - The patient's abdominal pain has defin itely improved. - She reports feeling better after reduc ing her dairy intake. Suspected bacterial vaginosis (BV): - The patient is concerned she may have bacterial vaginosis due to a persistent odor similar to that during her menstrual cycle, although she denies any discharge. - She associates the onset with having n ew sexual partners. Medical History: - Anxiety - Abdominal pain, improved - Unresolved grief related to mother's d eath 4 years ago Social History: - Exercise: Reports she was going to the gym regularly but has not been for the past two weeks. - Diet: Reports improvement in abdominal symptoms with decreased dairy intake. - Relationships: Reports recently jeb menon to date again after a period of being by herself, which she identifies as a trigger for anxiety and mood swings. - Activity: She notes that having too mu ch free time contributes to her mental health symptoms and plans to get back to being busy. Family History: - Mother is . Problem List - Anxiety - Mood swings - Abdominal pain, resolved - Suspected bacterial vaginosis - Preventative care: Physical exam and l ab work Plan - Continue to attempt scheduling an appo intment with a therapist to address mood swings, anxiety, and unresolved grief. - Resume taking buspirone 5 mg as needed for anxiety; a prescription is available for pickup at the pharmacy. - The patient may message via the [employer] portal if she wishes to discuss medication to stabilize her mood. - Vaginal swab collected to test for adal terial vaginosis; will await lab results before initiating treatment. - Will schedule a physical exam in four months. - Ordered fasting blood work to be compl eted before her next physical exam. - Advised the patient to resume her gym routine and keep busy to help manage mental health symptoms. 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: Alert awake oriented x3 motor intact Skin: Normal turgor PFSH Medical History Depression Refused influenza vaccine Morbid obesity Generalized anxiety disorder Heartburn H/O No known health problems Family History Mother Hypertension Anemia H/O kidney disease H/O major depression H/O anxiety disorder Paternal Grandmother H/O malignant neoplasm of breast Sister H/O: depression Social History Housing: House Alcohol intake: current Alcohol intake frequency: a few times a month Patient Tobacco Use Status: Never used Tobacco e-Cigarette/Vaping Use: Never Used Substance Use Type: Marijuana service: No Current occupational status: employed 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, 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 Cognitive needs: No Hearing needs: No Vision needs: Yes Female Reproductive History Menstrual Age of Menarche: 13 Questionnaire Thrive Questionnaire Date Thrive assessed: 04/06/24 What is your living situation today?: I have a steady place to live Within the past 12 months, did the food you bought not last and you didn't have the money to get more?: I choose not to answer this question Within the past 12 months, did you worry whether your food would run out before you got money to buy more?: I choose not to answer this question Do you have trouble paying for medicines?: No Do you have trouble getting transportation to medical appointments?: No Do you have trouble paying your heating and electricity bill?: No Do you have trouble taking care of your child, family member or friend?: No Do you have trouble with day-to-day activities such as bathing, preparing meals, shopping, managing finances, etc.?: No Are you currently unemployed and looking for a job?: No Are you interested in more education?: Yes Please select the resources that you would like help with: None Currently or been in a relationship where the following occur: I choose not to answer THRIVE Score: 0 MARY-7 AMB Questionnaire MARY-7 Date MARY - 7 assessed: 04/06/24 Source: Developed by Drs. Duran Mcmahon, Vianey Osborne, Hector Ro and colleagues, with an educational socorro from [employer]. Physical exam (Primary Care) Vital Signs: Last Vital Signs Pulse 80 02/22/25 12:55 BP 118/80 02/22/25 12:55 Pulse Ox 98 02/22/25 12:55 BMI result Body Mass Index 37.0 Tobacco/Smoking Status: Tobacco use Status Tobacco use date assessed 06/11/24 02/22/25 12:57 Patient Tobacco Use Status Never used Tobacco 02/22/25 12:57 e-Cigarette/Vaping Use Never Used 02/22/25 12:57 Thrive Assessment: Date of Thrive Assessment Date Thrive assessed 04/06/24 02/22/25 12:57 Currently or been in a relationship where the following occur: I choose not to answer Coding Level of Care Code Est Pt Level 4 (40975) Diagnoses Mood swings R45.86 Generalized anxiety disorder F41.1 Vaginal discharge N89.8 Class 2 obesity due to excess calories without serious comorbidity with body mass index (BMI) of 39.0 to 39.9 in adult E66.812; E66.09; Z68.39 Body mass index: BMI 39.0-39.9 Obesity classification: adult class 2 (BMI 35 - 39.9) Serious obesity comorbidity presence: without serious comorbidity Chronic GERD K21.9 Dairy product intolerance K90.49 Assessment & Plan Assessment & Plan (1) Mood swings: Code(s): R45.86 - Emotional lability Category: Medical (2) Generalized anxiety disorder: Code(s): F41.1 - Generalized anxiety disorder Category: Medical (3) Vaginal discharge: Code(s): N89.8 - Other specified noninflammatory disorders of vagina Category: Medical (4) Obesity due to excess calories: Code(s): E66.09 - Other obesity due to excess calories Category: Medical Qualifiers: Body mass index: BMI 39.0-39.9 Obesity classification: adult class 2 (BMI 35 - 39.9) Serious obesity comorbidity presence: without serious comorbidity Qualified Code(s): E66.812 - Obesity, class 2; E66.09 - Other obesity due to excess calories; Z68.39 - Body mass index [BMI] 39.0-39.9, adult (5) Chronic GERD: Code(s): K21.9 - Gastro-esophageal reflux disease without esophagitis Category: Medical (6) Dairy product intolerance: Code(s): K90.49 - Malabsorption due to intolerance, not elsewhere classified Category: Medical Plan Problem List - Anxiety - Mood swings - Abdominal pain, resolved - Suspected bacterial vaginosis - Preventative care: Physical exam and lab work Plan - Continue to attempt scheduling an appointment with a therapist to address mood swings, anxiety, and unresolved grief. - Resume taking buspirone 5 mg as needed for anxiety; a prescription is available for pickup at the pharmacy. - The patient may message via the patient portal if she wishes to discuss medication to stabilize her mood. - Vaginal swab collected to test for bacterial vaginosis; will await lab results before initiating treatment. - Will schedule a physical exam in four months. - Ordered fasting blood work to be completed before her next physical exam. - Advised the patient to resume her gym routine and keep busy to help manage mental health symptoms. Orders: Orders Complete Blood Count Auto Diff Today E66.09 - Other obesity due to excess calories, E66.812 - Obesity, class 2, F41.1 - Generalized anxiety disorder, K21.9 - Gastro-esophageal reflux disease without esophagitis, K90.49 - Malabsorption due to intolerance, not elsewhere classified, N89.8 - Other specified noninflammatory disorders of vagina, R45.86 - Emotional lability, Z68.39 - Body mass index [BMI] 39.0-39.9, adult Lipid Panel Today E66.09 - Other obesity due to excess calories, E66.812 - Obesity, class 2, F41.1 - Generalized anxiety disorder, K21.9 - Gastro- esophageal reflux disease without esophagitis, K90.49 - Malabsorption due to intolerance, not elsewhere classified, N89.8 - Other specified noninflammatory disorders of vagina, R45.86 - Emotional lability, Z68.39 - Body mass index [BMI] 39.0-39.9, adult Bacterial Vaginosis Panel Today N89.8 - Other specified noninflammatory disorders of vagina Comprehensive [place]. Panel Fast Today E66.09 - Other obesity due to excess calories, E66.812 - Obesity, class 2, F41.1 - Generalized anxiety disorder, K21.9 - Gastro-esophageal reflux disease without esophagitis, K90.49 - Mal absorption due to intolerance, not elsewhere classified, N89.8 - Other specified noninflammatory disorders of vagina, R45.86 - Emotional lability, Z68.39 - Body mass index [BMI] 39.0-39.9, adult TSH reflex Free T4 Today E66.09 - Other obesity due to excess calories, E66.812 - Obesity, class 2, F41.1 - Generalized anxiety disorder, K21.9 - Gastro- esophageal reflux disease without esophagitis, K90.49 - Malabsorption due to intolerance, not elsewhere classified, N89.8 - Other specified noninflammatory disorders of vagina, R45.86 - Emotional lability, Z68.39 - Body mass index [BMI] 39.0-39.9, adult
--- OUTSIDE RECORDS SUMMARY | 2025-02-22 16:40 | XMS_ITS | Encounter Summary ---
Author Organization [facility] Address [address] [place] [address] Phone Care Team Providers Care Batch Roller Operator Name Role Phone Natasha Jaramillo MD Primary Care Provider Encounter Details Date Type Department Care Team (Late st Contact Info) Description 12/17/2011 Documentation [facility] Family Medicine [address] [place] [address] Family Medicine, Physician [address] [place], [place] [phone] Social History Tobacco Use Types Packs/Day Years [...] on filedocumented in this encounter Care Teams Batch Roller Operator Relationship Specialty Start Date End Date Natasha Jaramillo MD [address] [place], [place] [address] [address] PCP - General 10/18/16 06/30/22 documented as of this encounter
--- OUTSIDE RECORDS SUMMARY | 2025-02-22 16:40 | XMS_ITS | Encounter Summary ---
Author Organization [facility] Address [address] [place] [address] Phone Care Team Providers Care Black Mill Operator Name Role Phone Natasha Jaramillo MD Primary Care Provider [phone] Encounter Details Date Type Department Care Team (Late st Contact Info) Description 06/28/2016 Documentation [facility] [place] Family Medicine [address] [place] [address] Family Medicine, Physician [address] [place], [place] [phone] Social History Tobacco Use Types Packs/Day Years [...] on filedocumented in this encounter Care Teams Black Mill Operator Relationship Specialty Start Date End Date Natasha Jaramillo MD [address] [place], [place] [address] [address] PCP - General 10/18/16 06/30/22 documented as of this encounter
--- OUTSIDE RECORDS SUMMARY | 2025-02-22 16:40 | XMS_ITS | Clinical Summary ---
Author Organization [facility] Address [address] [place], [place] [phone] Phone Care Team Providers Care Computer Instructor Name Role Phone Unavailable Primary Care Provider [...] complete this topic Procedures * Due to [place] [employer] law, this organization might not be sharing sensitive test results. Procedure Name Priority Date/Time Associated Diagnosis Comments CHLAMYDIA AND GONORRHEA, AMPLIFIED Routine 09/12/2015 2:09 PM EDT from Last 3 Months or Most Recently Relevant to Health Maintenance Results * Due to [place] state law, this organization might not be sharing sensitive test results. * Chlamydia and Gonorrhoea, Amplified (09/12/2015 2:09 PM EDT) [facility] URINE GC AMP PROBE NEGATIVE [facility] Comment: No Neisseria Gonorrhoeae RNA detected in this patient's sample (REFERENCE RANGE/NORMAL VALUE: NOT DETECTED) NOTE: This test uses trackless trolley driver-mediated amplification method to detect rRNA from C.Trachomatis [...] without risk of sexual abuse. Consult the [facility] [place] if needed. Contact phone number . Therapeutic failure or success cannot be determined with the Aptima Combo2 assay since nucleic acid may persist following appropriate antimicrobial therapy. The Centers for Disease Control and Prevention (CDC) recommends confirmatory retesting using culture or a different nucleic acid amplification test when positive results occur, if indicated. Testing performed or reported by [facility], a Service of [facility], [address] [place] [address] CLIA [id number] Mike Small MD, PhD, Ged Tutor URINE CHLAMYDIA AMP PROBE NEGATIVE [facility] Comment: No Chlamydia Trachomatis RNA detected in this patient's sample (REFERENCE RANGE/NORMAL VALUE: NOT DETECTED) 09/12/2015 2:09 PM EDT Narrative [facility] - 09/12/2015 2:09 PM EDT URINE CHLAMYDIA GC AMP PROBE us Natasha Jaramillo MD LAB MICROBIOLOGY - GENERAL O RDERABLES Final Result [facility] [address] [place] [address], [place] from Last 3 Months or Most Recently Relevant to Health Maintenance
--- OUTSIDE RECORDS SUMMARY | 2025-02-22 16:40 | XMS_ITS | Encounter Summary ---
Author Organization [facility] Address [address] [place] [address] Phone Care Team Providers Care Manager Medical Affairs Name Role Phone Natasha Jaramillo MD Primary Care Provider [phone] Encounter Details Date Type Department Care Team (Late st Contact Info) Description 10/24/2016 Conversion Encounter [facility] [place] [address] [place] [address] Social History Tobacco Use Types Packs/Day Years [...] on filedocumented in this encounter Care Teams Manager Medical Affairs Relationship Specialty Start Date End Date Natasha Jaramillo MD [address] [place] [address] PCP - General 10/18/16 06/30/22 documented as of this encounter
== END 2025-02-22 13:16 | disposition home or self-care (01) ==
LOC: HO.HMCC 12:51
PROVIDERS: PCP Internal Medicine; Visit Provider Internal Medicine
DX: R45.86 Emotional lability (principal); F41.1 Generalized anxiety disorder; N89.8 Other specified noninflammatory disorders of vagina; E66.812 Obesity, class 2; E66.09 Other obesity due to excess calories; Z68.39 Body mass index [BMI] 39.0-39.9, adult; K21.9 Gastro-esophageal reflux disease without esophagitis; K90.49 Malabsorption due to intolerance, not elsewhere classified

== ENCOUNTER 2025-02-22 12:51 | Outpatient (REF) | payer OTHER, SELFPAY ==
[2025-02-22 23:21] LABS: Bacterial Vaginosis PCR POSITIVE (Negative); Candida Group PCR NOT DETECTED (Not Detect); Candida glab krusei PCR NOT DETECTED (Not Detect); Trichomonas vaginalis PCR NOT DETECTED (Not Detect)
== END 2025-02-22 12:52 | disposition home or self-care (01) ==
LOC: HO.LNP 12:51
PROVIDERS: PCP Internal Medicine; Visit Provider Internal Medicine
DX: N89.8 Other specified noninflammatory disorders of vagina (principal); R45.86 Emotional lability; F41.1 Generalized anxiety disorder; E66.812 Obesity, class 2; E66.09 Other obesity due to excess calories; K21.9 Gastro-esophageal reflux disease without esophagitis; K90.49 Malabsorption due to intolerance, not elsewhere classified; Z68.37 Body mass index [BMI] 37.0-37.9, adult
CPT/HCPCS: 81515; 99212